=== PATIENT | male | born 1985 | race Caucasian/White ===

== ENCOUNTER 2016-09-12 10:46 | Emergency (ER) | payer OTHER ==
[2016-09-12 11:25] VITALS: BMI 30.7
[2016-09-12 11:27] VITALS: O2SAT 100
[2016-09-12] MEDS ORDERED: Naproxen 550 mg Tab PO STA (12:05)
[2016-09-12] MEDS ORDERED: Naproxen 550 mg Tab PO ONE (12:27)
--- NOTE | 2016-09-12 12:53 | C.PDOC ---
History Of Present Illness Pt states that he dropped an air conditioner on his right foot yesterday. Time Seen by Provider: 09/12/16 11:51 Chief Complaint (Nursing): Lower Extremity Problem/Injury History Per: Patient Onset/Duration Of Symptoms: Days (1) Current Symptoms Are (Timing): Still Present Severity: Moderate - Ankle/Foot Description Of Injury: Struck With Object Currently Unable To: Bear Weight Past Medical History Reviewed: Historical Data, Nursing Documentation, Vital Signs Vital Signs: Last Vital Signs Temp 97.7 F 09/12/16 11:24 Pulse 72 09/12/16 11:24 Resp 18 09/12/16 11:24 BP 112/72 09/12/16 11:24 Pulse Ox 100 09/12/16 11:24 - Medical History PMH: No Chronic Diseases Surgical History: No Surg Hx Family History: States: Unknown Family Hx - Social History Hx Alcohol Use: No Hx Substance Use: No - Immunization History Hx Tetanus Toxoid Vaccination: No Hx Influenza Vaccination: No Hx Pneumococcal Vaccination: No Review Of Systems Except As Marked, All Systems Reviewed And Found Negative. Constitutional: Negative for: Fever, Weakness Cardiovascular: Negative for: Chest Pain Respiratory: Negative for: Shortness of Breath Gastrointestinal: Negative for: Vomiting, Abdominal Pain Musculoskeletal: Positive for: Foot Pain (right). Negative for: Neck Pain, Back Pain, Leg Pain Skin: Negative for: Rash Neurological: Negative for: Weakness, Numbness, Seizures, Altered Mental Status Physical Exam - Physical Exam Appears: Non-toxic, No Acute Distress Skin: Normal Color, Warm, Dry Head: Atraumatic, Normacephalic Eye(s): bilateral: PERRL, EOMI Neck: Normal ROM, Supple Extremity: Normal ROM, Tenderness (right forefoot), No Calf Tenderness, Capillary Refill (wnl), No Deformity, Swelling (right foot) Pulses: Right Dorsalis Pedis: Normal Neurological/Psych: Oriented x3, Normal Motor, Normal Sensation ED Course And Treatment O2 Sat by Pulse Oximetry: 100 Pulse Ox Interpretation: Normal - Other Rad Right foot x-rays X-Ray: Interpreted by Me, Viewed By Me Interpretation: No acute fx or dislocation. Reassessment Condition: Improved Disposition Counseled Patient/Family Regarding: Studies Performed, Diagnosis, Need For Followup, Rx Given - Disposition Referrals: Podiatry Clinic [Outside] Disposition: HOME/ ROUTINE Disposition Time: 12:53 Condition: IMPROVED Additional Instructions: Rest. Elevate. Ice. Use orthopedic shoe provided as instructed. Follow up with a [employer] [facility] (Foot doctor) for further evaluation and treatment. Return to the ER if you develop weakness, numbness, severe pain, worsening of symptoms or if you have any other concerns. Prescriptions: Naproxen [Naprosyn] 1 tab PO BID PRN #20 tab PRN Reason: Pain Instructions: Foot Contusion (ED) - Clinical Impression Clinical Impression: Contusion of right foot
[2016-09-12 13:07] VITALS: BP 117/82; PULSE 66; RESP 16; TEMP 97.5
--- NOTE | 2016-09-12 16:57 | RAD ---
PROCEDURE: Right Foot Radiographs. HISTORY: Pain s/p air conditioner fell on foot yesterday. COMPARISON: None. FINDINGS: BONES: Normal. No fracture. JOINTS: Normal. SOFT TISSUES: Normal. OTHER FINDINGS: None. IMPRESSION: Normal right foot radiographs.
== END 2016-09-12 13:12 | disposition home or self-care (01) ==
LOC: C.ER 10:46
DX: S90.31XA Contusion of right foot, initial encounter (principal); W22.8XXA Striking against or struck by other objects, initial encounter; Y93.89 Activity, other specified; Y92.89 Other specified places as the place of occurrence of the external cause